=== PATIENT | female | born 1970 | race Caucasian/White ===

== ENCOUNTER 2020-01-03 08:57 | Day surgery (SDC) | payer BC ==
[~2020-01-03] VITALS: Ht 162.6 cm; Wt 86.2 kg
[~2020-01-03 08:57] MED LIST: FOLIC ACID1 MG PO; LEVOTHYROXINE50 MCG PO; METHOTREXATE2.5 MG SQ; MOBIC7.5 MG PO
[2020-01-03 09:25] LABS: HEMATOCRIT 36.5 % (36.0-48.0); HEMOGLOBIN 12.3 g/dL (12-16); MCH 32.5 pg (26.0-34.0); MCHC 33.7 g/dL (31.0-37.0); MCV 96.6 fL (80.0-100.0); MEAN PLATELET VOLUME 9.4 fL (7.4-10.4); RBC 3.78 10x6/uL (4.00-5.40); RDW 13.8 % (11.5-14.5); WBC 4.5 10x3/uL (4.8-10.8)
[2020-01-03 10:32] VITALS: BP 119/75; Ht 162.6 cm; Wt 86.2 kg
[2020-01-03] MEDS ORDERED: PERCOCET 5-3251 TAB PO (12:41)
[2020-01-03] MEDS ORDERED: VISTARIL50 MG PO (12:42)
--- NOTE | 2020-01-04 09:01 | OP ---
PATIENT NAME: JEET MELVIN MEDICAL RECORD: [id number] :72 LOCATION:[facility] ADMISSION DATE: SURGEON: BASILIO SCHWARZ DO DATE OF OPERATION: 01/03/2020 PROCEDURE PERFORMED: Left distal fibula open reduction internal fixation. PREOPERATIVE DIAGNOSIS: Left distal fibula fracture nonunion. POSTOPERATIVE DIAGNOSIS: Left distal fibula fracture nonunion. INDICATIONS: Ms. Melvin is a 49-year-old female who had a left distal fibula fracture from the ankle twist. She did not know what was going on and suddenly had a bump on the side of her ankle. This has been going on for 4-5 months and the knot or the bump was getting bigger. She had an MRI, which showed a nonunion of the distal fibula. 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 I informed her that we will need to check her vitamin D levels and that she would need to undergo if she wanted to as she is tied dealing with the pain, open reduction internal fixation and I would compress the fracture site and curette it out and get some bleeding bone, some fresh bone in the area and maybe use some graft. She was okay with that and aware of the risks including continued pain, damage to nerves and vessels in the area, other nonunion and blood clots, and even and she signed the consent. SURGEON: Basilio Schwarz DO DESCRIPTION OF PROCEDURE: The patient was taken to the operative suite after given a block by anesthesia, placed in supine position, given general anesthetic and LMA was placed. She was given 2 grams Ancef. The left lower extremity was then prepped and draped in sterile fashion. Timeout was performed. Everyone was in agreement with the correct side, site, and patient and procedure. We then exsanguinated the left lower extremity and tourniquet was inflated to 350 mmHg, was up for 24 minutes. I then dissected carefully down to the fracture site using a rongeur to chew off the hypertrophic bone and to curette out the fracture site to remove all the hypertrophic bone. I then put in a DBX putty approximately 1 mL to fill the fracture site and then put the plate on 1st locked 3 screws distally and then 2 compression screws proximally compressing the fracture nicely. This was done after the plate and confirmed to be in good position on AP, lateral and mortise view was taken also and everything was in good position. A tourniquet was then let down and the site was closed by Anup Hinson, certified surgical first cook with 3-0 Vicryl in inverted interrupted fashion and ZipLine placed on the ankle. She was then dressed with Adaptic, 4 x 4s, ABD, cast padding, ABD on the heel and around the ankle. Cast padding and then a 4 x [address] with 6-inch Bakari wrap. She was awakened and taken to recovery in stable condition. BLOOD LOSS: Minimal. COMPLICATIONS: None. TRANSINT:[id number] Voice Confirmation ID: [id number] DOCUMENT ID: [id number] OPERATIVE REPORT [id number] JEET MELVIN MICHAEL D, DO at 0901 CC: [id number] DICTATION DATE: 01/03/20 1341 TALK SHOW HOST: 01/03/20 1903 [facility] 01/03/20 [facility] [address] [place] [address]
== END 2020-01-03 16:10 | disposition home or self-care (01) ==
LOC: D.OPS 08:57 → D.PAN 11:15 → D.OPS 13:00 → D.PAN 13:00 → D.OPS 16:10
PROVIDERS: Anesthesiology; ATTEND Orthopaedic Surgery
DX: S82.65XA Nondisplaced fracture of lateral malleolus of left fibula, initial encounter for closed fracture (principal)